=== PATIENT | female | born 1990 | race Caucasian/White ===

== ENCOUNTER 2021-08-04 05:31 | Outpatient (CLI) | payer BC ==
[~2021-08-04] VITALS: Ht 157.5 cm; Wt 63.6 kg
[~2021-08-04 05:31] MED LIST: CLR500T; MINO50CA3; MMT17NA; YASMIN
== END 2021-08-06 11:34 | disposition home or self-care (01) ==
LOC: PREOP 05:31 → MERGE 09:00 → PREOP 08-06 11:34
PROVIDERS: ATTEND Obstetrics & Gynecology
DX: Z01.818 Encounter for other preprocedural examination (principal)

== ENCOUNTER 2021-08-11 11:00 | Inpatient (IN) | payer BC ==
[2021-08-11] VITALS (7 sets, daily range): BP systolic 95–132; BP diastolic 63–86
[~2021-08-11] VITALS: Ht 157 cm; Wt 62.7 kg
[2021-08-11] MEDS ORDERED: CITRIC ACID/SOB CIT (BICITRA) 30 ML UDC PO ONE (11:15)
[2021-08-11] MEDS ORDERED: metroNIDAZOLE 500MG/100ML IVPB 100 ML IV ONE (11:15)
[2021-08-11] MEDS ORDERED: FAMOTIDINE 20MG/2ML IV (PEPCID) IV ONE (11:15)
[2021-08-11] MEDS ORDERED: LACTATED RINGERS 1,000 ML IV SCH (11:15)
[2021-08-11] MEDS ORDERED: ceFAZolin 2 GM IV Premixed 50 ML IV ONE (11:15)
[2021-08-11] MEDS ORDERED: METOCLOPRAMIDE INJ 10 MG/2 ML (REGLAN) IV ONE (11:15)
[2021-08-11 11:56] LABS: BASOPHILS % (AUTO) 1 % (0-10); EOSINOPHILS % (AUTO) 1 % (0-10); HEMATOCRIT 36 % (35-52); HEMOGLOBIN 12.1 g/dL (11.5-16.0); LYMPHOCYTES # (AUTO) 1.4 10^3/uL (1.0-4.0); LYMPHOCYTES % (AUTO) 22 % (12-44); MEAN CORPUSCULAR HEMOGLOBIN 31 pg (25-34); MEAN CORPUSCULAR HGB CONC 34 g/dL (32-36); MEAN CORPUSCULAR VOLUME 91 fL (80-99); MEAN PLATELET VOLUME 10.9 fL (9.0-12.2); MONOCYTES # (AUTO) 0.5 10^3/uL (0.0-1.0); MONOCYTES % (AUTO) 8 % (0-12); NEUTROPHILS # (AUTO) 4.6 10^3/uL (1.8-7.8); NEUTROPHILS % (AUTO) 69 % (42-75); PLATELET COUNT 203 10^3/uL (130-400); WHITE BLOOD COUNT 6.7 10^3/uL (4.3-11.0)
[2021-08-11] MEDS: LACTATED RINGERS 1,000 ML IV SCH ×2 (11:57→12:22)
--- NOTE | 2021-08-11 12:09 | History & Physical ---
History and Physical Date Seen by Provider: Aug 11, 2021 Time Seen by Provider: 12:07 This patient is a 31-year-old primigravid female who presents now at 38 weeks gestation for primary delivery due to History of genital herpes and oligohydramnios. She denies rupture membranes or bleeding. She has no specific complaints. She does feel baby moving has an occasional contraction.Her GBS culture result is on the chart. TRAVON last week was 51 Which was a significant drop from her previous TRAVON. Patient denies recent prodrome or active herpetic lesions But does not want a trial of labor For fear of asymptomatic viral shedding and the inherent risk that would pose to her baby Allergies are none Medications are vitamins And Valtrex 500 mg daily Medical social and surgical history are per the antepartum record HEENT exam is normal Neck is supple no Lymphadenopathy or thyromegaly Abdomen is gravid soft nontender nondistended Extremities show no clubbing cyanosis. There is no Homans' sign. Pelvic exam was deferred Assessment and plan 38+ week gestation in a patient with herpes simplex and oligohydramnios. Plan is to proceed with primary delivery. Surgical risk complications recovery and follow-up as well as options for delivery are fully discussed patient is ready to proceed with primary 38 weeks gestation with Herpes simplex and oligohydramnios Allergies and Home Medications Allergies Coded Allergies: No Known Drug Allergies (Verified , 02/13/08) Patient Home Medication List Home Medication List Reviewed: Yes Docusate Sodium (Colace) 100 Mg Capsule, 100 MG PO BID Prescribed by: JAHAIRA TALBOT on 08/11/21 1213 Ibuprofen (Ibuprofen) 800 Mg Tablet, 800 MG PO Q6H PRN for PAIN Prescribed by: JAHAIRA TALBOT on 08/11/21 1213 Oxycodone HCl/Acetaminophen (Percocet 10-325 mg Tablet) 1 Each Tablet, 1 TAB PO Q8H PRN for PAIN-MODERATE Prescribed by: JAHAIRA TALBOT on 08/11/21 1213 Discontinued Medications Clarithromycin (Biaxin) 500 Mg Tablet, (Reported) Discontinued Reason: No Longer Taking Entered as Reported by: NEYMAR KNIGHT on 02/13/08 1038 Minocycline Hcl (Minocin) 50 Mg Capsule, (Reported) Discontinued Reason: No Longer Taking Entered as Reported by: NEYMAR KNIGHT on 02/13/08 1038 Mometasone Furoate (Nasonex) 17 Gm [place], (Reported) Discontinued Reason: No Longer Taking Entered as Reported by: NEYMAR KNIGHT on 02/13/08 1038 [len] , (Reported) Discontinued Reason: No Longer Taking Entered as Reported by: NEYMAR KNIGHT on 02/13/08 1040 JAHAIRA ELDRIDGE MD Aug 11, 2021 12:09
[2021-08-11] MEDS ORDERED: DOCU-143 PO (12:13)
[2021-08-11] MEDS ORDERED: IBUP-1780 PO (12:13)
[2021-08-11] MEDS ORDERED: OXYC1TAB12 PO (12:13)
[2021-08-11] MEDS ORDERED: fentaNYL INJ 100 MCG/2 ML AMP IVP PRN (12:15)
[2021-08-11] MEDS ORDERED: oxyCODONE/APAP 10/325MG (PERCOCET 10) TABLET PO PRN (12:15)
[2021-08-11] MEDS ORDERED: D5 LR IV SOLUTION 1,000 ML IV SCH (12:15)
[2021-08-11] MEDS ORDERED: TETANUS,DIPTH,PERTUSS P/F (BOOSTRIX) 0.5 ML VIAL IM ONE (12:15)
[2021-08-11] MEDS ORDERED: KETAMINE SYRINGE 50 MG/5 ML SYRINGE ONE (12:15)
[2021-08-11] MEDS ORDERED: fentaNYL INJ 100 MCG/2 ML AMP ONE (12:15)
[2021-08-11] MEDS ORDERED: ONDANSETRON 4 MG/2 ML (SDV) Z0FRAN IVP PRN (12:15)
[2021-08-11] MEDS ORDERED: MEASLES,MUMPS,RUBELLA 1 EA INJ SC ONE (12:15)
[2021-08-11] MEDS ORDERED: FLU QUADRIvalent (3YOA+) 60 mcg/0.5 ml 2021-22(AFLURIA) IM ONE (12:15)
[2021-08-11] MEDS ORDERED: OXYTOCIN PRE-MIX DRIP 500 ML IV SCH (12:15)
--- NOTE | 2021-08-11 12:15 | Discharge Inst-Surgical ---
Discharge Inst-Surgical Depart Medication/Instructions New, Converted or Re-Newed RX: Transmitted to Pharmacy Consults/Follow Up Patient Instructions: As directed Orders & Referrals Follow Up Appt: RTC 1 week for incision check With Dr. Anderson and/or his nurse Call to make follow up appt. for patient in 4 weeks. Wound Care: Remove jerod, apply benzoin and steri strips. Activity Per routine post instructions. Diet as tolerated Patient may shower or tub bathe as desired. Continue home meds Activity Activity as Tolerated: No Diet Discharge Diet: No Restrictions JAHAIRA ANDERSON MD Aug 11, 2021 12:15
[2021-08-11] MEDS ORDERED: OXYTOCIN PRE-MIX DRIP 1,000 ML IV ONE (12:16)
[2021-08-11] MEDS ORDERED: KETOROLAC 30 MG/ML VIAL ONE (13:00)
[2021-08-11] MEDS: KETOROLAC 30 MG/ML VIAL IVP SCH ×2 (13:00→19:26)
[2021-08-11] MEDS ORDERED: BUPIVACAINE 0.5% 30 ML (SENSORCAINE) VIAL ONE (13:44)
--- NOTE | 2021-08-11 15:35 | OPERATIVE REPORT ---
DATE OF SERVICE: 08/11/2021 PREOPERATIVE DIAGNOSES: Term at 38+ weeks' gestation with a history of genital herpes and oligohydramnios and breech presentation. OPERATIVE PROCEDURE: Primary low transverse delivery of a viable female infant with Apgars Of 1 8 and 8 at 1 minute 5 minutes and 10 minutes respectively and with a weight of 7 pounds 3 ounces and a cord blood pH of 7.25. time of 12:44. OPERATIVE DESCRIPTION: With the patient in the supine position under satisfactory spinal anesthesia, she was prepped and draped in the usual fashion for abdominal surgery. Ricketts catheter was placed in the urinary bladder and left to dependent drainage. A Pfannenstiel incision was made through the skin with scalpel, the patient's abdomen was entered in the usual manner. Bladder retractor placed in position and a lateral wall retractor. The patient's left side exposing the lower uterine segment, a 4 cm incision was made transversely across the lower uterine segment and that was extended bluntly digitally as well. A small amount of amniotic fluid was released on hysterotomy. The was in elana breech presentation and breech delivery was accomplished by elevating the presenting part from the pelvis with tractions under the hips. The baby initially was elevating out of the pelvis and then there was an audible and palpable snap concerning for a bone fracture, as the delivery progressed it was clear that the right femur fractured. The delivery continued with the delivery of the buttocks and both legs and then, the was rotated from spine posterior as the delivery was completed, the infant was rotated to the spine anterior. Care was taken to avoid additional trauma to the right femur. Once the shoulders were reached, right arm and then the left arm was swept free of the incision and then Kwmeuazrc-Unyciko-Zpcv maneuver was incorporated to deliver the aftercoming head, which delivered easily. The was bulb suctioned. Umbilical cord was doubly clamped and cut and the passed to the pediatric nurse in attendance for delivery. On noting that the right femur had fractured, I requested that a life science taxonomist be summoned and she was on hand shortly after the delivery. The had Apgars and stats as noted above. The placenta delivered spontaneously Zoya after obtaining cord bloods. The uterus was exteriorized, It is noted that was somewhat heart-shaped uterus with a bulky fundus, interior wiped clean with a wet laparotomy sponge. Uterine incision then closed with a running locked suture of 2-0 Vicryl. Hemostasis was complete. The uterus was returned to the abdominal cavity. All blood clot and debris removed from the abdominal cavity. The sponge and needle counts correct and hemostasis assured. Anterior parietal peritoneum was closed with running suture of 2-0 Vicryl. Rectus muscles were closed with that same suture. Rectus fascia was closed with 2-0 Vicryl, subcutaneous tissue was closed with 2-0 Vicryl and the skin was stapled. Sponge and needle counts were correct on completion of the procedure. Blood loss was around 100 mL. The patient tolerated the procedure well and was transferred to the recovery room in stable condition. The infant had been taken to the nursery under the care of Dr. Tubbs due to the fractured extremity. Job ID: [id number] DocumentID: [id number] Dictated Date: 08/11/2021 13:59:46 [employer] Beading Machine Tender Date: 08/11/2021 15:35:33 Dictated By: JAHAIRA ELDRIDGE MD MTDD
[2021-08-11] MEDS: DOCUSATE SODIUM 100 MG (COLACE) CAP PO SCH (19:27)
[2021-08-11] MEDS ORDERED: DOCUSATE SODIUM 100 MG (COLACE) CAP PO SCH (21:00)
[2021-08-12] MEDS: KETOROLAC 30 MG/ML VIAL IVP SCH ×2 (00:51→06:16)
[2021-08-12 00:57] VITALS: BP 128/78
[2021-08-12 06:29] VITALS: BP 130/73
--- NOTE | 2021-08-12 07:27 | Discharge Inst-Surgical ---
Discharge Inst-Surgical Depart Medication/Instructions New, Converted or Re-Newed RX: Transmitted to Pharmacy Consults/Follow Up Patient Instructions: As directed Orders & Referrals Follow Up Appt: RTC any day this week that is convenient for staple removal Call to make follow up appt. for patient in 4 weeks. Activity Per routine post instructions. Diet as tolerated Patient may shower or tub bathe as desired. Continue home meds Activity Activity as Tolerated: No Diet Discharge Diet: No Restrictions JAHAIRA ELDRIDGE MD Aug 12, 2021 07:27
--- NOTE | 2021-08-12 07:28 | Progress Note ---
Standard Progress Note Progress Notes/Assess & Plan Date Seen by a Provider: Aug 12, 2021 Time Seen by a Provider: 07:27 Progress/Assessment & Plan This patient is without complaint. She is ambulating, voiding, tolerating oral intake well and has good pain control. Patient denies chest pain, denies shortness of breath, denies nausea vomiting, and denies headache. Patient reports that her baby is stable and doing well at [facility] Vital Signs Date Time Temp Pulse Resp B/P (MAP) Pulse Ox O2 Delivery O2 Flow Rate FiO2 08/12/21 06:29 36.3 83 18 130/73 (92) 98 08/12/21 00:57 36.9 68 18 128/78 (95) 98 08/11/21 20:00 37.1 73 18 124/73 (90) 98 08/11/21 15:16 37.1 68 17 132/63 (86) 97 08/11/21 13:52 36.7 16 127/86 (100) 100 Room Air 08/11/21 13:52 Room Air 08/11/21 13:38 36.9 16 105/73 (84) 100 Room Air 08/11/21 13:38 Room Air 08/11/21 13:23 36.7 16 95/70 (78) 99 Room Air 08/11/21 13:23 Room Air 08/11/21 13:08 Room Air 08/11/21 13:08 36.5 16 114/69 (84) 100 Room Air 08/11/21 11:51 36.7 74 16 99 Room Air I & O 08/12/21 06:59 Intake Total 4650 ml Output Total 1350 ml Balance 3300 ml Vital signs are stable. Patient is afebrile. The abdomen is benign The surgical incision is clean dry and intact Extremities show no clubbing cyanosis. There is no Homans' sign. Assessment and plan Postoperative day #1 status post primary delivery doing well. Plan is for discharge home with follow-up in clinic Final Diagnosis 38-week primary delivery JAHAIRA ELDRIDGE MD Aug 12, 2021 07:28
[2021-08-12] MEDS: DOCUSATE SODIUM 100 MG (COLACE) CAP PO SCH (07:35)
[2021-08-12 07:42] VITALS: BP 128/75
--- NOTE | 2021-08-12 14:12 | Anesthesia-Regional Post-Op ---
Regional Patient Condition Mental Status: Alert, Oriented x3 Circulation: Same as Pre-Op Headache: Absent Sensation: Full Recovery Motor Block: Absent Post Op Complications Complications None Follow Up Care/Instructions Patient Instructions None needed. Anesthesia/Patient Condition Patient is doing well, no complaints, stable vital signs, no apparent adverse anesthesia problems. No complications reported per nursing. LIONEL PRATER CRNA Aug 12, 2021 14:12
[2021-08-16] MEDS ORDERED: IBUPROFEN 800 MG (MOTRIN) TAB PO SCH (12:00)
== END 2021-08-12 08:15 | disposition home or self-care (01) | DRG 787 ==
LOC: LDRP 11:00 → MERGE 13:00 → LDRP 14:00
PROVIDERS: ADMIT Obstetrics & Gynecology; ATTEND Obstetrics & Gynecology
PROC: 10D00Z1 Extraction of Products of Conception, Low, Open Approach (ICD-10-PCS; principal; 2021-08-11 12:22)
DX: O41.03X0 Oligohydramnios, third trimester, not applicable or unspecified (principal); O98.32 Other infections with a predominantly sexual mode of transmission complicating childbirth; O64.1XX0 Obstructed labor due to breech presentation, not applicable or unspecified; A60.09 Herpesviral infection of other urogenital tract; Z37.0 Single live birth; Z3A.38 38 weeks gestation of pregnancy; Z79.899 Other long term (current) drug therapy; Z20.822 Contact with and (suspected) exposure to COVID-19
CPT/HCPCS: 36415; 85025; 86850; 86900; 86901; 87636